=== PATIENT | male | born 1935 | race Caucasian/White ===

== ENCOUNTER 2017-07-08 18:46 | Emergency (ER) | payer OTHER ==
[2017-07-08 18:52] VITALS: BP 180/85; PULSE 75; RESP 16; TEMP 98.6; O2SAT 97
--- NOTE | 2017-07-08 19:47 | EDPHY ---
H & P Stated Complaint: mechanical fall facial lac, epistaxis, hand abrasions, r knee pain Time Seen by Provider: 07/08/17 19:29 HPI/ROS: Chief complaint: Mechanical fall with injuries History of present illness: This is an 81-year-old male who presents to the emergency department for evaluation after sustaining a mechanical fall. Patient was walking briskly trying to catch up with his tripped and fell. He struck his right knee, hands and face against the ground. He reports mild discomfort in his right knee. Discomfort with the scrapes to his hands and nose. However there was no loss of consciousness. He denies significant face pain. No headache. No neck pain, no pain in the chest, abdomen, back or extremities other than described above. Further no report of neurologic symptoms such as paresthesias, weakness or paralysis or bowel or bladder dysfunction. Review of systems: A 10 point review of systems was obtained and other than described above was negative - Personal History Current Tetanus/Diphtheria Vaccine: Unsure Current Tetanus Diphtheria and Acellular Pertussis (TDAP): Unsure - Medical/Surgical History Hx Asthma: No Hx Chronic Respiratory Disease: No Hx Diabetes: No Hx Cardiac Disease: No Hx Renal Disease: No Hx Cirrhosis: No Hx Alcoholism: No Hx HIV/AIDS: No Hx Splenectomy or Spleen Trauma: No Other PMH: denies - Social History Smoking Status: Never smoked - Physical Exam Exam: General Appearance: Alert, nontoxic Eyes: PERRLA ENT: No hemotympanum, no bull sign, no raccoon eyes Respiratory: Lungs clear to auscultation bilaterally Cardiac: Regular rate and rhythm. Gastrointestinal: Bowel sounds normal. Abdomen is soft, nondistended, nontender. Neurological: Alert and oriented x4. Cranial nerves 2-12 grossly intact. Strength and sensation intact and symmetrical. Skin: Deep abrasion to the bridge of the nose. Superficial abrasions to the hands and the right knee. Musculoskeletal: The face is nontender to palpation without crepitus or bony deformity. The head is nontender to palpation without crepitus or bony deformity. The spine is nontender to palpation along its entire length. No crepitus, bony deformity or step-off appreciated. Chest wall intact to palpation. There is mild tenderness over the anterior right knee. However he is flexing extending it well and has been ambulating. The rest of the extremities are unremarkable. Constitutional: Initial Vital Signs Temperature (C) 37.0 C 07/08/17 18:48 Heart Rate 75 07/08/17 18:48 Respiratory Rate 16 07/08/17 18:48 Blood Pressure 180/85 H 07/08/17 18:48 O2 Sat (%) 97 07/08/17 18:48 O2 Delivery Mode Room Air Allergies/Adverse Reactions: Penicillins Allergy (Verified 12/12/09 15:15) Home Medications: Medication Instructions Recorded NK [No Known Home Meds] 07/08/17 Medical Decision Making - Diagnostics Imaging Results: Imaging Impressions Knee X-Ray 07/08/17 19:39 Impression: Acute minimally displaced patellar fracture involving the lateral facet. Imaging: I viewed and interpreted images myself Procedures: Procedure: Splint placement. A knee immobilizing splint was applied. After application of the splint I returned and re-examined the patient. The splint was adequately immobilizing the joint and distal to the splint the patient's circulation and sensation was intact. ED Course/Re-evaluation: Patient seen in conjunction with my secondary supervising physician Dr. Roddy Arenas. Patient presents to the emergency department after a mechanical fall. Mild superficial wounds that have been cleaned and dressed. X-ray of the right knee reveals a small fracture. I have discussed the case with Orthopedics, he recommends a knee immobilizer but patient can remain weight-bearing. By history and physical exam I do not appreciate evidence of further trauma, I do not believe further imaging studies are warranted. Patient is discharged home and asked to follow up with his primary care doctor and Orthopedics for recheck. He is a [facility] patient and I contacted [facility] to help arrange follow-up. Strict return precautions are given. Differential Diagnosis: Included but not limited to soft tissue injury, bony injury, unlikely intracranial or spinal cord injury Departure - Departure Disposition: Home, Routine, Self-Care Clinical Impression: Abrasion Condition: Good Instructions: Abrasion (ED), Acute Wounds (ED) Additional Instructions: Follow-up with your primary care doctor on Monday for recheck Keep wounds clean with soap and water and apply antibacterial ointment at least twice daily If symptoms worsen or new symptoms develop return to the emergency room for recheck Referrals: INOCENCIO TORIBIO [Primary Care Provider] - As per Instructions
== END 2017-07-08 20:49 | disposition home or self-care (01) ==
DX: S80.211A Abrasion, right knee, initial encounter (principal); S00.31XA Abrasion of nose, initial encounter; S60.511A Abrasion of right hand, initial encounter; S60.512A Abrasion of left hand, initial encounter; W01.198A Fall on same level from slipping, tripping and stumbling with subsequent striking against other object, initial encounter; Y99.8 Other external cause status; Y93.01 Activity, walking, marching and hiking
CPT/HCPCS: L1830